=== PATIENT | male | born 1990 | race Caucasian/White ===

== ENCOUNTER 2023-11-01 15:54 | Outpatient (AMB) | payer OTHER, SELFPAY ==
--- NOTE | 2023-11-01 16:13 | A.OFFPC_ITS ---
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 Will order labs. Pt would like to see a therapist due to depression. Will have BH team reach out to pt. Denies any SI and HI. PFSH Surgical History Hx of wisdom tooth extraction Social History Housing: House Patient Tobacco Use Status: Never used Tobacco e-Cigarette/Vaping Use: Never Used service: No Current occupational status: unemployed Cognitive needs: No Hearing needs: No Vision needs: Yes Questionnaire PHQ-9 Over the last 2 weeks, how often have you been bothered by any of the following problems? 1. Little interest or pleasure in doing things: more than half the days 2. Feeling down, depressed, or hopeless: several days 3. Trouble falling or staying asleep, or sleeping too much: more than half the days 4. Feeling tired or having little energy: several days 5. Poor appetite or overeating: several days 6. Feeling bad about yourself - or that you are a failure or have let yourself or your family down: several days 7. Trouble concentrating on things, such as reading the newspaper or watching television: not at all 8. Moving or speaking so slowly that other people could have noticed. Or the opposite - being so fidgety or restless that you have been moving around a lot more than usual: not at all 9. Thoughts that you would be better off or of hurting yourself in some way: not at all Total score: 8 Depression Screening Interpretation: Negative (having Felicitas () reach out to pt for possible therapist) Depression Screening Done: Yes 01734 - PHQ-9 Billing: Yes Source: Developed by Drs. Abelardo Desai, Moira Keith, Mohan Walker and colleagues, with an educational brandon from [employer]. Thrive Questionnaire Date Thrive assessed: 10/25/23 I am a: Patient What is your living situation today?: I have a steady place to live Within the past 12 months, did the food you bought not last and you didn't have the money to get more?: I choose not to answer this question Within the past 12 months, did you worry whether your food would run out before you got money to buy more?: I choose not to answer this question Do you have trouble paying for medicines?: Yes Do you have trouble getting transportation to medical appointments?: No Do you have trouble paying your heating and electricity bill?: Yes Do you have trouble taking care of your child, family member or friend?: No Do you have trouble with day-to-day activities such as bathing, preparing meals, shopping, managing finances, etc.?: No Are you currently unemployed and looking for a job?: Yes Are you interested in more education?: Yes Please select the resources that you would like help with: Daily support Currently or been in a relationship where the following occur: No concerns reported THRIVE Score: 1 AUDIT C Alcohol Use Questionnaire (AUDIT-C) 1. How often do you have a drink containing alcohol?: 2-3 times a week 2. How many drinks containing alcohol do you have on a typical day when you are drinking?: 1 or 2 3. How often do you have six or more drinks on one occasion?: Never Total Score: 3 Score Reviewed/Action Taken: Yes JAM-7 AMB Questionnaire JAM-7 Feeling nervous, anxious, or on edge: 0 = Not at all Not being able to stop or control worryin = Not at all Worrying too much about different things: 1 = Several days Trouble relaxin = Not at all Being so restless that it is hard to sit still: 0 = Not at all Becoming easily annoyed or irritable: 0 = Not at all Feeling afraid as if something awful might happen: 0 = Not at all Total JAM-7 score (0-4 normal; 5-9 mild; 10-14 moderate; 15-21 severe): 1 Source: Developed by Drs. Abelardo Desai, Moira Keith, Mohan Walker and colleagues, with an educational brandon from [employer]. JAM-7 Assessment Billing JAM-7 Assessment Tool: JAM-7 Assessment [id number] Review of Systems Const Denies chills and Denies fever(s) Eyes Denies blurry vision ENT Denies vertigo, Denies dizziness and Denies sore throat Card Denies chest pain at rest, Denies chest pain with activity, Denies diaphoresis, Denies dyspnea and Denies dyspnea on exertion Resp Denies cough, Denies dyspnea, Denies dyspnea on exertion and Denies wheezing GI Denies abdominal pain, Denies melena, Denies hematochezia, Denies constipation, Denies diarrhea and Denies loose stools Denies hematuria Musc Denies numbness and Denies tingling Skin/Breast Denies lesions Neuro Denies vertigo, Denies dizziness, Denies numbness and Denies tingling Psych Denies anxiety, Reports depression, Denies homicidal ideation, Denies suicidal ideation and Denies other (substance abuse) Aller/Immun Denies wheezing Physical exam (Primary Care) Vital Signs: Last Vital Signs Pulse 74 11/01/23 16:14 BP 118/64 11/01/23 16:14 Pulse Ox 97 11/01/23 16:14 Oxygen Delivery Method Room Air 11/01/23 16:14 BMI result Body Mass Index 22.0 Tobacco/Smoking Status: Tobacco use Status Tobacco use date assessed 11/01/23 11/01/23 16:17 Patient Tobacco Use Status Never used Tobacco 11/01/23 16:17 e-Cigarette/Vaping Use Never Used 11/01/23 16:17 PHQ-9: PHQ-9 Score PHQ-9: Total score 8 11/01/23 16:35 Depression Screening Interpretation: Negative (having Felicitas HIRSCH) reach out to pt for possible therapist) Thrive Assessment: Date of Thrive Assessment Date Thrive assessed 10/25/23 11/01/23 16:14 Currently or been in a relationship where the following occur: No concerns reported Const General: cooperative Nutritional Appearance: well nourished Orientation/consciousness: patient oriented x3 HENMT Head: Yes normal to inspection, Yes normocephalic and Yes atraumatic Ears: TM's normal bilaterally Eyes General: appearance normal, both eyes and all related structures Alignment and Position: alignment normal and position normal Neck Neck: Yes normal visual inspection and Yes no lymphadenopathy Thyroid: Thyroid normal Resp Effort & Inspection: normal respiratory effort Auscultation: clear to auscultation bilaterally Cardio Rate: regular rate Rhythm: regular rhythm Heart sounds: S1 normal heart sound present, S2 normal heart sound present and no murmurs GI Palpation (GI): Soft to palpation and nontender Auscultation: normal bowel sounds Male General Exam: Yes normal external exam Penis: normal penis Scrotum: scrotum normal, testes descended bilaterally and no inguinal hernias Testes: no testicular mass Skin Rashes: no rashes Neuro General: patient oriented x3, moves all extremities, no focal motor deficits and deep tendon reflexes 2+ bilaterally Romberg Test: Negative Psych Appearance: grossly normal Mental Status: mental status grossly normal Speech and movement: Normal speech and movement present Affect: normal affect Attitude: cooperative Thought process: Normal thought process present Thought content: Normal thought content present Insight: Good insight present (Psych) Judgement: Good judgement present (Psych) Assessment and Plan Assessment & Plan (1) Physical exam: Code(s): Z00.00 - Encounter for general adult medical examination without abnormal findings Plan: Labs ordered Plan The patient agreed to the use of a medical coordinator pesticide use for this encounter. Scribed for LISA Tinajero by Alvina Alfred medical coordinator pesticide use, on 11/01/2023 at 16:35 EST. Orders: Orders Complete Blood Count Auto Diff Today Z00.00 - Encounter for general adult medical examination without abnormal findings Comprehensive [place]. Panel Fast Today Z00.00 - Encounter for general adult medical examination without abnormal findings TSH reflex Free T4 Today Z00.00 - Encounter for general adult medical examination without abnormal findings UA CC w/rflx Micro + Cult Today Z00.00 - Encounter for general adult medical examination without abnormal findings Lipid Panel Today Z00.00 - Encounter for general adult medical examination without abnormal findings Coding Level of Care Code New Pt Prev Care 18-39yr(44400 Diagnoses Physical exam Z00.00 Additional Codes JAM-7 Assessment Billing - JAM-7 Assessment Tool: JAM-7 Assessment 79612 ([id number])
[2023-11-01 16:14] VITALS: BP 118/64; PULSE 74; O2SAT 97; BMI 22.0
== END 2023-11-01 16:49 | disposition home or self-care (01) ==
PROVIDERS: PCP Nurse Practitioner Family; Visit Provider Nurse Practitioner Family
DX: Z00.00 Encounter for general adult medical examination without abnormal findings (principal)
CPT/HCPCS: 99385

== ENCOUNTER 2024-03-30 10:52 | Outpatient (AMB) | payer OTHER, SELFPAY ==
[2024-03-30 11:24] VITALS: BP 110/72; PULSE 88; TEMP 36.6; O2SAT 96
--- NOTE | 2024-03-30 11:24 | MHC.OFFWIV ---
Intake Vital Signs 03/30/24 11:24 Weight 163 lb BP 110/72 Blood Pressure Location Lt brachial Position Sitting Pulse 88 Pulse Source Pulse Oximeter Temp 97.9 F Temp Source Oral Pulse Oximetry (%) 96 Oxygen Delivery Method Room Air Intake Visit Reasons: EP Pain in throat, hard to swallow, strep? Intake Note: Patient here for sore throaty that has been painful for the past 3 days. Patient Tobacco Use Status: Never used Tobacco Allergies No Known Allergies Allergy (Verified 03/30/24 11:24) Do you need a note to return to daycare/school/sports/work: No HPI HPI Comments History of Present Illness Details He presents with ST Onset x 3 days ago in middle of night Worse with swallowing DayQuil, NyQuil and Ibuprofen No fever or chills Minimal cough without phlegm No CP, SOB or congestion Denies sick contacts Unable to give pain scale PFSH Surgical History Hx of wisdom tooth extraction Social History Housing: House Patient Tobacco Use Status: Never used Tobacco e-Cigarette/Vaping Use: Never Used service: No Current occupational status: unemployed Cognitive needs: No Hearing needs: No Vision needs: Yes Review of Systems Const Denies chills and Denies fever(s) ENT Denies otalgia, Denies nasal discharge, Denies sinus pain and Reports sore throat Card Denies chest pain Resp Denies cough Musc Denies myalgias Physical Exam Vital Signs: Last Vital Signs Temp 97.9 F 03/30/24 11:24 Pulse 88 03/30/24 11:24 BP 110/72 03/30/24 11:24 Pulse Ox 96 03/30/24 11:24 Oxygen Delivery Method Room Air 03/30/24 11:24 General: Non-toxic, NAD. Speaking full sentences and handling secretions Skin: Warm dry throughout Eye: EOMI HENT: Airway patent. Uvula midline. + pharyngeal erythema without exudate or edema. 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 Bilateral canals clear. TM non-erythematous, non-bulging. No TM perforation or hemotympanum noted. Respiratory:No respiratory distress Neurology: Alert. No aphasia or facial droop. Gait without abnormality Psych: Good mood and affect Results AMB Rapid Strep AMB Rapid Strep Positive Last Edit by MEREDITH Saucedo on 03/30/24 11:37 Assessment & Plan Assessment & Plan (1) Strep pharyngitis: Code(s): J02.0 - Streptococcal pharyngitis Plan: + strep No pharyngeal abscess Amoxicillin New toothbrush after 48 hours Tylenol/Motrin ER symptoms discussed with pt He gave verbal understanding and had no additional questions at time of discharge Medications: New penicillin V potassium 500 mg PO BID 20 tabs 0RF 10 days Coding Level of Care Code Est Pt Level 3 (59850) Diagnoses Strep pharyngitis J02.0
== END 2024-03-30 11:57 | disposition home or self-care (01) ==
PROVIDERS: PCP Nurse Practitioner Family; Visit Provider Physician Assistant
DX: Z13.9 Encounter for screening, unspecified (principal); J02.0 Streptococcal pharyngitis

== ENCOUNTER → 2024-03-30 10:52 | Outpatient (BNVA) | payer OTHER, SELFPAY | PROVIDERS: PCP Nurse Practitioner Family; Visit Provider Physician Assistant | DX: J02.0 Streptococcal pharyngitis (principal) | CPT/HCPCS: 87880; 99212 ==

== ENCOUNTER 2024-05-26 09:04 | Outpatient (AMB) | payer OTHER, SELFPAY ==
--- NOTE | 2024-05-26 09:15 | MHC.OFFWIV ---
Intake Vital Signs 05/26/24 09:16 Height 5 ft 11 in Weight 158 lb BMI 22.0 BP 94/60 Blood Pressure Location Lt brachial Position Sitting Respiration 16 Pulse 67 Pulse Source Pulse Oximeter Temp 98.5 F Temp Source Oral Pulse Oximetry (%) 99 Oxygen Delivery Method Room Air Intake Visit Reasons: EP Pain/numbing in rt elbow to fingers Intake Note: Pt is here today c/o Rt elbow pain no injury noted x1wk Patient Tobacco Use Status: Never used Tobacco Allergies No Known Allergies Allergy (Verified 05/26/24 09:30) HPI EP Pain/numbing in rt elbow to fingers HPI Details Patient gets pain in elbow and proximal forearm with tingling and numbness into hand and fingers Symptoms are worse after work in the evening He has not tried any remedies at this point PFSH Surgical History Hx of wisdom tooth extraction Social History Housing: House Patient Tobacco Use Status: Never used Tobacco e-Cigarette/Vaping Use: Never Used service: No Current occupational status: unemployed Cognitive needs: No Hearing needs: No Vision needs: Yes Review of Systems Const Denies chills, Denies fatigue, Denies fever(s), Denies headache(s) and Denies weakness ENT Denies dizziness and Denies headache(s) Card Denies dyspnea Resp Denies cough, Denies dyspnea, Denies wheezing and Denies other ( shortness of breath) Musc Details: See HPI Reports numbness and Reports tingling Neuro Denies dizziness, Denies headache(s), Reports numbness, Reports tingling, Denies paresthesias and Denies weakness Psych Denies anxiety and Denies depression Endo Denies fatigue Aller/Immun Denies wheezing Physical Exam Vital Signs: Last Vital Signs Temp 98.5 F 05/26/24 09:16 Pulse 67 05/26/24 09:16 Resp 16 05/26/24 09:16 BP 94/60 05/26/24 09:16 Pulse Ox 99 05/26/24 09:16 Oxygen Delivery Method Room Air 05/26/24 09:16 BMI result Body Mass Index 22.0 Const General: no acute distress and well developed Nutritional Appearance: well nourished Orientation/consciousness: patient oriented x3 HEENT Head: Yes normocephalic and Yes atraumatic Eyes General: appearance normal, both eyes and all related structures Pupils: Equal, round and reactive pupils present EOM: EOMs intact bilaterally Resp Effort & Inspection: normal respiratory effort Auscultation: clear to auscultation bilaterally Cardio Rate: regular rate Rhythm: regular rhythm Heart sounds: S1 normal heart sound present, S2 normal heart sound present, no gallops, no murmurs and no rubs Neuro Other: Currently normal motor and sensation at right hand General: patient oriented x3 and gait normal Cranial nerves: Yes Equal, round and reactive pupils present Psych Affect: normal affect Assessment & Plan Assessment & Plan (1) Right arm pain: Code(s): M79.601 - Pain in right arm Plan: Possibly a cubital tunnel syndrome Advised ice and elevation Will give him meloxicam for decreased inflammation Advised relative rest-he may want to try a elbow brace or Robert wrap when working Advised him to follow-up with his PCP to consider occupational therapy, imaging and or referral if not resolving Medications: New meloxicam 15 mg PO DAILY 30 days 30 tabs 2RF Coding Level of Care Code Est Pt Level 3 (23481) Diagnoses Right arm pain M79.601
[2024-05-26 09:16] VITALS: BP 94/60; PULSE 67; RESP 16; TEMP 36.9; O2SAT 99; BMI 22.0
== END 2024-05-26 10:42 | disposition home or self-care (01) ==
PROVIDERS: PCP Nurse Practitioner Family; Visit Provider Family Medicine
DX: M79.601 Pain in right arm (principal)

== ENCOUNTER → 2024-05-26 09:04 | Outpatient (BNVA) | payer OTHER, SELFPAY | PROVIDERS: PCP Nurse Practitioner Family ==

== ENCOUNTER 2024-05-26 10:22 | Outpatient (REF) | payer OTHER, SELFPAY ==
[2024-05-26 13:33] LABS: MANUAL DIFF FLAG NO
[2024-05-26 13:37] LABS: Basophils Percent Auto 0.6 % (0-2); Eosinophils Absolute Auto 0.1 X10*3/uL (0.0-0.4); Eosinophils Percent Auto 2.3 % (0-4); Hematocrit 41.4 % (42.0-52.0); Hemoglobin 13.7 g/dl (14.0-18.0); Imm Gran Abs Auto 0.01 X10*3/uL (0.00-0.03); Imm Gran Pct Auto 0.2 % (0.0-0.4); Lymphocytes Absolute Auto 1.8 X10*3/uL (1.2-4.9); Lymphocytes Percent Auto 38.3 % (20-40); Mean Corpuscular HGB Conc 33.1 g/dl (31.0-36.0); Mean Corpuscular Volume 84.7 fL (80.0-98.0); Mean Platelet Volume 11.3 fL (9.4-12.4); Monocytes Absolute Auto 0.6 X10*3/uL (0.1-1.2); Monocytes Percent Auto 11.7 % (2-11); Neutrophils Absolute Auto 2.2 x10*3/uL (2.0-8.3); Neutrophils Percent Auto 46.9 % (45-73); Platelet Count 193 X10*3/uL (160-400); Red Blood Count 4.89 X10*6/uL (4.60-5.80); Red Cell Distribution Width 13.9 % (11.0-16.0); White Blood Count 4.7 X10*3/uL (4.8-10.8)
[2024-05-26 13:39] LABS: Appearance Urine Clear; Color Urine Yellow; Glucose Urine UA Negative (Negative); Leukocyte Esterase Urine Negative (Negative); Nitrite Urine Negative (Negative); PH 6.5 (5.0-9.0); Specific Gravity - Urine 1.025 (1.005-1.025); Urine Blood Negative (Negative); Urine Ketones Negative (Negative); Urine Protein Negative (Neg-Trace)
[2024-05-26 14:01] LABS: Alanine Aminotransferase 32 U/L (0-40); Albumin Level 4.2 g/dL (3.5-5.0); Alkaline Phosphatase 61 U/L (39-117); Anion Gap 10 (12-20); Aspartate Amino Transferase 22 U/L (5-37); Bilirubin Total 0.6 mg/dL (0.0-1.0); Blood Urea Nitrogen 18 mg/dL (9-16); Calcium 9.2 mg/dL (8.4-10.2); Carbon Dioxide 26 mmol/L (22-29); Chloride 109 mmol/L (96-108); Cholesterol 205 mg/dL (<200); Estimated Glomerular Filt Rate > 60; Glucose Fasting 85 mg/dL (60-99); HDL Cholesterol 81 mg/dL (>40); LDL Cholesterol Calculated 117 mg/dL (<100); Potassium 4.2 mmol/L (3.3-5.1); Sodium 141 mmol/L (135-145); Triglycerides 37 mg/dL (<150)
[2024-05-26 14:09] LABS: TSH reflex Free T4 0.84 uIU/mL (0.32-4.0)
== END 2024-05-26 10:23 | disposition home or self-care (01) ==
LOC: HO.HMGCLDS 10:22
PROVIDERS: PCP Nurse Practitioner Family; Visit Provider Nurse Practitioner Family
DX: Z00.00 Encounter for general adult medical examination without abnormal findings (principal); M79.601 Pain in right arm
CPT/HCPCS: 36415; 80053; 80061; 81003; 84443; 85025; 99212

== ENCOUNTER 2024-06-02 09:12 | Outpatient (REF) | payer OTHER, SELFPAY ==
[2024-06-02 11:18] LABS: MANUAL DIFF FLAG NO
[2024-06-02 11:29] LABS: Basophils Percent Auto 0.7 % (0-2); Eosinophils Absolute Auto 0.1 X10*3/uL (0.0-0.4); Eosinophils Percent Auto 3.4 % (0-4); Hematocrit 41.9 % (42.0-52.0); Hemoglobin 13.7 g/dl (14.0-18.0); Immature Retic Fraction 4.5 % (2.3-13.4); Lymphocytes Absolute Auto 1.6 X10*3/uL (1.2-4.9); Lymphocytes Percent Auto 37.6 % (20-40); Mean Corpuscular HGB Conc 32.7 g/dl (31.0-36.0); Mean Corpuscular Volume 85.5 fL (80.0-98.0); Mean Platelet Volume 11.6 fL (9.4-12.4); Monocytes Absolute Auto 0.4 X10*3/uL (0.1-1.2); Monocytes Percent Auto 10.4 % (2-11); Neutrophils Percent Auto 47.9 % (45-73); Platelet Count 161 X10*3/uL (160-400); Red Cell Distribution Width 13.9 % (11.0-16.0); Retic HGB Equivalent 32.6 pg (30.0-35.0); Reticulocytes Absolute 0.051 X10*6/uL (0.026-0.095); White Blood Count 4.2 X10*3/uL (4.8-10.8)
[2024-06-02 11:44] LABS: Iron 76 mcg/dL (45-160); Lactate Dehydrogenase 243 U/L (118-273); Percent Iron Saturation 31 % (15-50); Total Iron Binding Capacity 242 mcg/dL (228-428); Unsaturated Iron Binding 166 ug/dL
[2024-06-02 12:00] LABS: Ferritin 36 ng/mL (20-250)
[2024-06-02 12:12] LABS: Folate 10.8 ng/mL (> or = 4.0); Vitamin B12 418 pg/mL (200-900)
== END 2024-06-02 09:13 | disposition home or self-care (01) ==
LOC: HO.HMGCLDS 09:12
PROVIDERS: PCP Nurse Practitioner Family; Visit Provider Nurse Practitioner Family
DX: D64.9 Anemia, unspecified (principal)
CPT/HCPCS: 36415; 82607; 82728; 82746; 83540; 83615; 85025; 85045

== ENCOUNTER 2024-06-21 15:21 | Outpatient (AMB) | payer OTHER, SELFPAY ==
[2024-06-21 15:23] VITALS: BP 106/66; PULSE 67; TEMP 36.6; O2SAT 98; BMI 22.3
--- NOTE | 2024-06-21 15:23 | A.OFFPC_ITS ---
Vital Signs 06/21/24 15:23 Height 5 ft 11 in Weight 160 lb BMI 22.3 BP 106/66 Blood Pressure Location Lt brachial Position Sitting Pulse 67 Pulse Source Pulse Oximeter Temp 97.9 F Temp Source Oral Pulse Oximetry (%) 98 Intake Visit Reasons: Pain in rt elbow, numb/tingling fingers/update PCP Intake Note: pt is here for right elbow, numbness and tingling to fingers on right side for about a month. 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 Allergies No Known Allergies Allergy (Verified 06/21/24 16:11) Medication List - Last Reconciled 06/21/24 by LISSETTE Abbott- prednisone 50 mg PO DAILY 6 days Tobacco use date assessed: 06/21/24 Dental Screening Dental Screen Date: 06/21/24 Did you have a dental visit in the last 12 months?: Yes Did you have a dental problem in the last 6 months where you did not have access to dental care?: No Was dental information given to patient?: Patient has dentist HPI Pain in rt elbow, numb/tingling fingers/update PCP HPI Details Chief Complaint The patient reports ongoing numbness and tingling in all fingers of both hands, with a predominance on the right side. History of Present Illness The patient is a 34 year old male presenting with symptoms of numbness and tingling in the hands. Symptoms include numbness and tingling of all fingers, predominating on the right side, which are exacerbated by sleeping with elbow flexion. He reports a history of working with his hands extensively, correlating with potential nerve compression issues. Positive bilateral Phalen?s test, more pronounced on the right, further directs towards a diagnosis of carpal and cubital tunnel syndromes. Negative Tinel's sign was noted. The chronicity and oc cupational history suggest repetitive strain and nerve entrapment. 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 Health Maintenance Review of Systems - Neurological: Reports numbness and tin gling of all fingers, predominantly on the right side. -denies any neck pain Physical Exam General: Cooperative, healthy appearing, comfortable, no acute distress and well developed Orientation: Patient oriented x3 Limitations: No limitations Head: Normal to inspection Ears: Hearing grossly normal bilaterally Nose: Normal external nose present Face and sinus: Normal facial exam Eyes: Appearance normal, both eyes and all related structures Neck: Normal visual inspection and Yes full ROM without pain Skin: No rashes or lesions noted Neuro: Positive Phalen's test bilaterally, especially on the right side. Negative Tinel's sign bilaterally. Extremities: Normal to inspection, but reports numbness in all fingers, more pronounced on the right side. Results - EMG and nerve conduction tests referre d for further evaluation (tests not yet completed). Plan The patient's clinical presentation suggests cubital and carpal tunnel syndromes, potentially from nerve entrapment due to occupational factors. I am referring him for EMG and nerve conduction studies to confirm the diagnosis. A conservative approach includes wrist bracing and elbow position modifications overnight to alleviate symptoms. I have prescribed a short course of prednisone to manage inflammation. Ongoing assessment will be guided by test outcomes and symptom progression. Discussion Notes I discussed with the patient the potential diagnosis of cubital and carpal tunnel syndromes and the indications for EMG and nerve conduction tests. We reviewed the benefits and methodology of wearing wrist braces and using towels to prevent elbow flexion at night. I explained the short-term use of prednisone to reduce inflammation and its potential side effects. We agreed on these man agement steps, and I emphasized the importance of follow-up based on the forthcoming diagnostic results and symptom trends. Patient Instructions - Wear wrist braces as directed, especia lly during sleep. - Use towels around elbows to keep arms straight at night. - Take prednisone as prescribed. Monitor for improvements in symptoms or any side effects. - Schedule and complete EMG and nerve co nduction studies. - Follow up if symptoms persist or worse n. PFSH Medical History Lumbar nerve root compression Lumbar spondylosis Surgical History Hx of wisdom tooth extraction Social History Housing: House Patient Tobacco Use Status: Never used Tobacco e-Cigarette/Vaping Use: Never Used service: No Current occupational status: unemployed Cognitive needs: No Hearing needs: No Vision needs: Yes Questionnaire PHQ-9 Over the last 2 weeks, how often have you been bothered by any of the following problems? 1. Little interest or pleasure in doing things: not at all 2. Feeling down, depressed, or hopeless: not at all 3. Trouble falling or staying asleep, or sleeping too much: not at all 4. Feeling tired or having little energy: not at all 5. Poor appetite or overeating: not at all 6. Feeling bad about yourself - or that you are a failure or have let yourself or your family down: not at all 7. Trouble concentrating on things, such as reading the newspaper or watching television: not at all 8. Moving or speaking so slowly that other people could have noticed. Or the opposite - being so fidgety or restless that you have been moving around a lot more than usual: not at all 9. Thoughts that you would be better off or of hurting yourself in some way: not at all Total score: 0 Depression Screening Interpretation: Negative Depression Screening Done: Yes 45819 - PHQ-9 Billing: Yes Source: Developed by Drs. Abelardo Desai, Moira Keith, Mohan Walker and colleagues, with an educational brandon from [employer]. Thrive Questionnaire Date Thrive assessed: 06/21/24 I am a: Patient What is your living situation today?: I have a steady place to live Within the past 12 months, did the food you bought not last and you didn't have the money to get more?: Never true Within the past 12 months, did you worry whether your food would run out before you got money to buy more?: Never true Do you have trouble paying for medicines?: No Do you have trouble getting transportation to medical appointments?: No Do you have trouble paying your heating and electricity bill?: No Do you have trouble taking care of your child, family member or friend?: No Do you have trouble with day-to-day activities such as bathing, preparing meals, shopping, managing finances, etc.?: No Are you currently unemployed and looking for a job?: No Are you interested in more education?: No Please select the resources that you would like help with: None Currently or been in a relationship where the following occur: No concerns reported THRIVE Score: 0 AUDIT C Alcohol Use Questionnaire (AUDIT-C) 1. How often do you have a drink containing alcohol?: 2-3 times a week 2. How many drinks containing alcohol do you have on a typical day when you are drinking?: 1 or 2 3. How often do you have six or more drinks on one occasion?: Never Total Score: 3 Score Reviewed/Action Taken: Yes JAM-7 AMB Questionnaire JAM-7 Date JAM - 7 assessed: 06/21/24 Feeling nervous, anxious, or on edge: 0 = Not at all Not being able to stop or control worryin = Not at all Worrying too much about different things: 0 = Not at all Trouble relaxin = Not at all Being so restless that it is hard to sit still: 0 = Not at all Becoming easily annoyed or irritable: 0 = Not at all Feeling afraid as if something awful might happen: 0 = Not at all Total JAM-7 score (0-4 normal; 5-9 mild; 10-14 moderate; 15-21 severe): 0 Source: Developed by Drs. Abelardo Desai, Moira Keith, Mohan Walker and colleagues, with an educational brandon from [employer]. JAM-7 Assessment Billing JAM-7 Assessment Tool: JAM-7 Assessment 31315 Physical exam (Primary Care) Vital Signs: Last Vital Signs Temp 97.9 F 06/21/24 15:23 Pulse 67 06/21/24 15:23 BP 106/66 06/21/24 15:23 Pulse Ox 98 06/21/24 15:23 BMI result Body Mass Index 22.3 Tobacco/Smoking Status: Tobacco use Status Tobacco use date assessed 06/21/24 06/21/24 15:24 Patient Tobacco Use Status Never used Tobacco 06/21/24 15:24 e-Cigarette/Vaping Use Never Used 06/21/24 15:24 PHQ-9: PHQ-9 Score PHQ-9: Total score 0 06/21/24 15:29 Depression Screening Interpretation: Negative Thrive Assessment: Date of Thrive Assessment Date Thrive assessed 06/21/24 06/21/24 15:24 Currently or been in a relationship where the following occur: No concerns reported Coding Level of Care Code Est Pt Level 3 (37930) Diagnoses Numbness and tingling in both hands R20.0; R20.2 Additional Codes JAM-7 Assessment Billing - JAM-7 Assessment Tool: JAM-7 Assessment 96172 ([id number]) PHQ-9 - 92382 - PHQ-9 Billing: Yes ([id number]) Assessment & Plan Assessment & Plan (1) Numbness and tingling in both hands: Code(s): R20.0 - Anesthesia of skin; R20.2 - Paresthesia of skin Category: Medical Plan . Orders: Orders NE electromyogram (EMG) Today R20.0 - Anesthesia of skin, R20.2 - Paresthesia of skin NE nerve conduction velocity Today R20.0 - Anesthesia of skin, R20.2 - Paresthesia of skin Medications: New prednisone 50 mg PO DAILY 6 days 6 tabs 0RF Discontinued meloxicam Discontinued Reason: Doctor's Order 15 mg PO DAILY 30 days 30 tabs 2RF
== END 2024-06-21 16:30 | disposition home or self-care (01) ==
LOC: HO.HMCC 15:22
PROVIDERS: PCP Nurse Practitioner Family; Visit Provider Nurse Practitioner Family
DX: R20.0 Anesthesia of skin (principal); R20.2 Paresthesia of skin

== ENCOUNTER → 2024-06-21 15:21 | Outpatient (BNVA) | payer OTHER, SELFPAY | PROVIDERS: PCP Nurse Practitioner Family; Visit Provider Nurse Practitioner Family | DX: R20.0 Anesthesia of skin (principal); R20.2 Paresthesia of skin | CPT/HCPCS: 96127; 99212 ==

== ENCOUNTER 2024-07-10 08:14 | Outpatient (REF) | payer OTHER, SELFPAY ==
--- NOTE | 2024-07-10 08:17 | EMG_ITS ---
STUDY: EMG nerve conduction study. FINDINGS: Bilateral median and ulnar motor and sensory studies were performed. Bilateral radial sensory study was performed and paraspinal muscles were tested with a needle. IMPRESSION: 1. [id number] bilateral median neuropathy across carpal tunnel. 2. Mild left ulnar neuropathy across cubital tunnel. MD LUKE Layne/JACK / [id number]
== END 2024-07-10 08:15 | disposition home or self-care (01) ==
LOC: HO.NEURO 08:14
PROVIDERS: PCP Nurse Practitioner Family; Visit Provider Nurse Practitioner Family
DX: G56.13 Other lesions of median nerve, bilateral upper limbs (principal); G56.22 Lesion of ulnar nerve, left upper limb
CPT/HCPCS: 95860; 95886; 95911

== ENCOUNTER 2024-08-07 15:24 | Outpatient (AMB) | payer OTHER, SELFPAY ==
[2024-08-07 15:27] VITALS: BMI 20.9
--- NOTE | 2024-08-07 15:27 | MHC.OFFVIS ---
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 States CTS started a few months ago and has not improved. States all of his digit go numb mainly in the morning and gets better through out the day. Denies injury or locking of any finger. Bilateral UE EMG/NCS done on 07/10/24 IMPRESSION: 1. [id number] bilateral median neuropathy across carpal tunnel. 2. Mild left ulnar neuropathy across cubital tunnel. 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 States CTS started a few months ago and has not improved. States all of his digit go numb mainly in the morning and gets better through out the day. Denies injury or locking of any finger. Bilateral UE EMG/NCS done on 07/10/24 IMPRESSION: 1. [id number] bilateral median neuropathy across carpal tunnel. 2. Mild left ulnar neuropathy across cubital tunnel. [facility] Medical History Lumbar nerve root compression Lumbar spondylosis Surgical History Hx of wisdom tooth extraction Social History Housing: House Patient Tobacco Use Status: Never used Tobacco e-Cigarette/Vaping Use: Never Used service: No Current occupational status: unemployed Cognitive needs: No Hearing needs: No Vision needs: Yes Review of Systems Const All systems reviewed & are unremarkable except as noted in HPI and below Physical Exam Vital Signs: BMI result Body Mass Index 20.9 Extrem Other: Neuro: Normal sensation of the tips of all digits of bilateral hands in the office today No thenar or intrinsic wasting. Good APB muscle firing and good finger cross. Vascular: Capillary refill brisk. ROM: Patient can make a fist and extend all their digits. Skin: No lacerations or abrasions noted. General: No ecchymosis. No erythema or evidence of infection. Assessment & Plan Assessment & Plan (1) Carpal tunnel syndrome: Code(s): G56.00 - Carpal tunnel syndrome, unspecified upper limb Category: Medical (2) Cubital tunnel syndrome: Code(s): G56.20 - Lesion of ulnar nerve, unspecified upper limb Category: Medical Plan 1. Bilateral carpal tunnel 2. Bilateral cubital tunnel Patient is educated about this condition Patient is educated about the typical treatment course At this time, patient states he is unable to pursue operative intervention due to his job responsibilities, but he is interested in doing so in the future Patient will call us when he is in a position to be able to pursue operative intervention Follow-up as needed Coding Level of Care Code New Pt Level 3 (96328) Diagnoses Carpal tunnel syndrome G56.00 Cubital tunnel syndrome G56.20
== END 2024-08-07 15:47 | disposition home or self-care (01) ==
LOC: HO.HOS 15:25
PROVIDERS: PCP Nurse Practitioner Family
DX: G56.03 Carpal tunnel syndrome, bilateral upper limbs (principal); G56.23 Lesion of ulnar nerve, bilateral upper limbs
CPT/HCPCS: 99203

== ENCOUNTER → 2024-08-07 15:24 | Outpatient (BNVA) | payer OTHER, SELFPAY | PROVIDERS: PCP Nurse Practitioner Family | DX: G56.00 Carpal tunnel syndrome, unspecified upper limb (principal); G56.20 Lesion of ulnar nerve, unspecified upper limb | CPT/HCPCS: 99202 ==

== ENCOUNTER 2025-04-01 08:00 | Outpatient (REF) | payer BC, SELFPAY ==
--- NOTE | ~2025-04-01 | XR_ITS ---
EXAMINATION: XR CHEST 2 VIEWS HISTORY: J06.9 - Acute upper respiratory infection, unspecified COMPARISON: There are no prior studies available for comparison. FINDINGS: PA and lateral views of the chest are submitted. The lungs are expanded and clear. There is no pleural effusion, pneumothorax, or pulmonary vascular congestion. The heart is normal in size. The bones are intact. XR/XR chest 2V IMPRESSION: Normal examination of the chest. Electronically signed by: Abelardo Soto MD 04/01/2025 08:50 AM EST
[2025-04-01 11:22] LABS: Resp Syncy Virus RNA Qual PCR NEGATIVE (Negative); SARS COV2 PCR INHOUSE NEGATIVE (Negative)
== END 2025-04-01 08:01 | disposition home or self-care (01) ==
LOC: HO.HMGCX 08:00
PROVIDERS: PCP Nurse Practitioner Family; Visit Provider Nurse Practitioner Family
DX: J06.9 Acute upper respiratory infection, unspecified (principal); R09.89 Other specified symptoms and signs involving the circulatory and respiratory systems
CPT/HCPCS: 71046; 87637; 87880

== ENCOUNTER 2025-04-01 08:00 | Outpatient (AMB) | payer BC, SELFPAY ==
[2025-04-01 08:01] VITALS: BP 104/68; PULSE 92; TEMP 36.6; O2SAT 96; BMI 23.8
--- NOTE | 2025-04-01 08:01 | AM.OFFWIN_ITS ---
Intake Vital Signs 04/01/25 08:01 Height 5 ft 11 in Weight 171 lb BMI 23.8 BP 104/68 Blood Pressure Location Lt brachial Position Sitting Pulse 92 Pulse Source Pulse Oximeter Temp 97.9 F Temp Source Oral Pulse Oximetry (%) 96 Oxygen Delivery Method Room Air Intake Visit Reasons: EP severe sore throat, cough Intake Note: Patient presents c/o sore throat, sinus congestion x3 days. Patient Tobacco Use Status: Never used Tobacco Allergies No Known Allergies Allergy (Verified 04/01/25 08:03) Do you need a note to return to daycare/school/sports/work: Yes HPI HPI Comments History of Present Illness Details 34-year-old male presents to the walk-in clinic with complaints of upper respiratory symptoms for the past 3 days. Patient reports sore throat and sinus congestion. He endorses recent sick contact at work. Denies fevers, chills, nausea, vomiting, diarrhea, shortness of breath, chest pain, or cough. No OTC medications taken for symptoms. [facility] Medical History (Updated 04/01/25 @ 08:22 by Sarah Cameron NP) Acute respiratory disease Lumbar nerve root compression Lumbar spondylosis Surgical History Hx of wisdom tooth extraction Social History Housing: House Patient Tobacco Use Status: Never used Tobacco e-Cigarette/Vaping Use: Never Used service: No Current occupational status: unemployed Cognitive needs: No Hearing needs: No Vision needs: Yes Review of Systems Const All systems reviewed & are unremarkable except as noted in HPI and below Physical Exam Vital Signs: Last Vital Signs Temp 97.9 F 04/01/25 08:01 Pulse 92 04/01/25 08:01 BP 104/68 04/01/25 08:01 Pulse Ox 96 04/01/25 08:01 Oxygen Delivery Method Room Air 04/01/25 08:01 BMI result Body Mass Index 23.8 Const General: no acute distress Nutritional Appearance: well nourished Orientation/consciousness: patient oriented x3 HEENT Head: Yes normocephalic Ears: external ears normal and TM abnormal with fluid behind the TM General nose exam: Nasal discharge present Face and sinus: Yes normal facial exam Mouth: moist mucous membranes Throat: Yes uvula midline Resp Effort & Inspection: normal respiratory effort and able to speak in complete sentences Auscultation: clear to auscultation bilaterally, no crackles, no rales, rhonchi and wheezes lower bilaterally Cardio Heart sounds: S1 normal heart sound present and S2 normal heart sound present Neuro General: patient oriented x3 Results AMB Rapid Strep AMB Rapid Strep Negative Last Edit by Manda Loera CMA on 04/01/25 08: 27 Results Reviewed Results Reviewed: Laboratory Last Values Strep Scn Rapid Clinic Negative 04/01/25 08:21 Assessment & Plan Assessment & Plan (1) Acute respiratory disease: Code(s): J06.9 - Acute upper respiratory infection, unspecified Plan: Ordered chest Xray due to abnormal lung sounds Rapid Strep Negative. Ordered SARs Supportive care recommended Encouraged increased oral fluids and rest OTC medications as needed for symptom relief (e.g., acetaminophen or ibuprofen for throat discomfort, saline nasal spray, antihistamine/decongestant if tolerated) Warm saltwater gargles for sore throat Educated patient on viral illness course and expected symptom resolution Advised to return to clinic or seek care if symptoms worsen, persist beyond 7?10 days, or if he develops fever, shortness of breath, or worsening throat pain Orders: Orders AMB Rapid Strep Screen Today J06.9 - Acute upper respiratory infection, unspecified SARS-CoV2/FLU/RSV Today R09.89 - Other specified symptoms and signs involving the circulatory and respiratory systems XR chest 2V Today J06.9 - Acute upper respiratory infection, unspecified Coding Level of Care Code Est Pt Level 4 (32109) Diagnoses Acute respiratory disease J06.9 Time Spent (min) 25
== END 2025-04-01 08:47 | disposition home or self-care (01) ==
PROVIDERS: PCP Nurse Practitioner Family; Visit Provider Nurse Practitioner Family
DX: J06.9 Acute upper respiratory infection, unspecified (principal)

== ENCOUNTER → 2025-04-01 08:37 | Outpatient (BNV) | payer BC, SELFPAY | PROVIDERS: PCP Nurse Practitioner Family; Visit Provider Radiology Diagnostic Radiology | DX: J06.9 Acute upper respiratory infection, unspecified (principal) | CPT/HCPCS: 71046 ==